=== PATIENT | male | born 1945 | race Caucasian/White ===

== ENCOUNTER 2020-03-29 01:22 | Emergency (ER) | payer OTHER, SELFPAY ==
[2020-03-29 01:25] VITALS: BP 183/96; PULSE 66; RESP 16; TEMP 36.8; O2SAT 97; BMI 24.3
--- NOTE | 2020-03-29 01:45 | ED.GENADULT ---
HPI - General Adult General Chief complaint: Dizziness Stated complaint: has episode of vertigo, nausea,hot sweat Time Seen by Provider: 03/29/20 01:31 Source: patient Mode of arrival: Ambulatory Limitations: no limitations History of Present Illness HPI narrative: 74-year-old male who arrives the emergency department by private vehicle for evaluation of an episode that occurred earlier this evening. He states that he seemed to be at his normal state health when he was sitting eating. He states that he became very lightheaded. He initially did stated that he was having vertigo but upon further questioning it appears that he did not have any room spinning sensation. He states that he did feel like he was going to pass out. His had to help him over the couch where he laid down. After period of time he did seem to feel somewhat better. During this time he denied any other symptoms to include palpitations or shortness of breath or chest pain. During his travels here to the emergency department he states that he felt much better with sitting and laying down and some of the symptoms did occur when he was standing. The time my evaluation he felt like he was ?60% ?back to normal again. Has never had any symptoms like this in the past. Review of Systems Constitutional Constitutional: Denies chills, Denies fatigue and Denies fever(s) Eyes Eyes: Denies change in vision ENT Ears, Nose, Mouth, and Throat: Denies vertigo, Reports dizziness, Denies neck pain, Reports disequilibrium and Denies sore throat Cardiovascular Cardiovascular: Denies chest pain and Denies dyspnea Respiratory Respiratory: Denies dyspnea Gastrointestinal Gastrointestinal: Denies abdominal pain, Denies nausea and Denies vomiting Musculoskeletal Musculoskeletal: Denies neck pain Integumentary/Breasts Skin/Breast: Denies lesions and Denies rash Neurologic Neurologic: Denies abnormal movements, Denies abnormal speech, Denies behavioral changes, Denies vertigo, Reports dizziness, Denies convulsions and Reports disequilibrium Psychiatric Psychiatric: Denies behavioral changes Endocrine Endocrine: Denies fatigue Hematologic/Lymphatic Hematologic/Lymphatic: Denies easy bleeding and Denies easy bruising Patient History Medical History Patient denies medical problems (Acute) Social History Smoking Status: Never smoker Smoking Status: Never smoker Substance Use Type: does not use Exam Initial Vital Signs Initial Vital Signs: Vital Signs Temperature 98.2 F 03/29/20 01:25 Pulse Rate 66 03/29/20 01:25 Respiratory Rate 16 03/29/20 01:25 Blood Pressure 183/96 H 03/29/20 01:25 Pulse Oximetry 97 03/29/20 01:25 Const General: cooperative and comfortable Limitations: mental status not altered HENMT Head: normal to inspection and normocephalic Eyes Pupils: PERRL EOM: EOM intact bilaterally Resp Effort & Inspection: normal respiratory effort Auscultation: clear to auscultation bilaterally Cardio Rate: regular rate Rhythm: regular rhythm Skin Lesions: no lesions Rashes: no rashes Neuro General: patient alert, patient awake and patient oriented x3 Cranial Nerves: CN's II-XI intact bilaterally Cognition: normal cognition Speech: speech normal Gait: normal gait Motor: muscle tone normal throughout Sensory Exam: no sensory deficits noted Extrem General: normal to inspection and capillary refill normal Psych Appearance: grossly normal and well kempt Scores GCS [place] coma scale eye opening: Spontaneous [place] coma scale verbal response: Orientated [place] coma scale motor response: Obey commands [place] coma scale total score: 15 Course Orders Ordered: ED Orders 03/29/20 01:32 EKG-12 Lead Stat 03/29/20 01:35 Basic Metabolic Panel Stat Complete Blood Count AUTO DIFF Stat Troponin I Stat 03/29/20 01:46 CT head/brain wo con Stat Vital Signs Vital signs: Vital Signs - 8 hr 03/29/20 01:25 03/29/20 02:54 03/29/20 03:00 Temperature 98.2 F Pulse Rate 66 61 Pulse Rate [Orthostatic Lying] 64 Pulse Rate [Orthostatic Sitting] 70 Pulse Rate [Orthostatic Standing] 65 Respiratory Rate 16 16 Blood Pressure 183/96 H 132/75 Blood Pressure [Orthostatic Lying] 133/77 Blood Pressure [Orthostatic Sitting] 155/79 H Blood Pressure [Orthostatic Standing] 163/82 H Pulse Oximetry 97 97 03/29/20 04:13 Temperature Pulse Rate 67 Pulse Rate [Orthostatic Lying] Pulse Rate [Orthostatic Sitting] Pulse Rate [Orthostatic Standing] Respiratory Rate 18 Blood Pressure 164/96 H Blood Pressure [Orthostatic Lying] Blood Pressure [Orthostatic Sitting] Blood Pressure [Orthostatic Standing] Pulse Oximetry 99 Medical Decision Making Lab Data Lab results reviewed: Yes I reviewed the patient's lab results. Result diagrams: 03/29/20 01:35 03/29/20 01:35 Labs: Lab Results 03/29/20 03/29/20 Range/Units 01:35 01:35 WBC 10.7 (4.5-11.0) X10^3/uL RBC 4.98 (4.5-5.9) X10^6/uL Hgb 14.8 (13.5-17.5) g/dL Hct 44.7 (41-53) % MCV 89.6 (80-100) fL MCH 29.7 (26-34) PG MCHC 33.1 (30-36) % RDW 13.0 (11.6-14.8) % Plt Count 215 (150-400) X10^3/uL Neut % (Auto) 51.6 (50-75) % Lymph % (Auto) 31.2 (25-40) % [place] % (Auto) 6.2 (3-14) % Eos % (Auto) 10.4 H (2-4) % Baso % (Auto) 0.6 (0-2) % Neut # (Auto) 5500 (8266-0642) /uL Lymph # (Auto) 3400 (4878-2268) /uL [place] # (Auto) 700 (0-900) /uL Eos # (Auto) 1100 H (0-450) /uL Baso # (Auto) 100 (0-100) /uL Sodium 137 (137-145) mmol/L Potassium 4.1 (3.4-5.1) mmol/L Chloride 104 (98-107) mmol/L Carbon Dioxide 27 (22-32) mmol/L BUN 23 H (9-20) mg/dL Creatinine 1.15 (0.66-1.25) mg/dL Estimated GFR > 60.0 (>60) mL/min BUN/Creatinine Ratio 20.0 (6-22) Glucose 96 (80-110) mg/dL Calcium 9.5 (8.4-10.2) mg/dL Troponin I < 0.012 (0.01-0.034) ng/mL Imaging Data CT scan - head: Radiologist's Impression: No acute intracranial hemorrhage or infarct ECG Data Attestation: I personally reviewed and interpreted this ECG as follows: Prior ECG tracings: not available for review Interpretation: Sinus rhythm Normal axis Normal QRS Normal QTC No ST T wave changes MDM Narrative Medical decision making narrative: Patient has essentially normal exam here in the ER to include in neurologic exam. During his time here he did state that all of his symptoms have completely resolved he is back to 100% normal. He ambulated around the emergency depart without any problems. His head CT is unremarkable. His EKG is unremarkable. His labs are unremarkable. I do not have a specific etiology for symptoms however I believe that CVA is unlikely. His description of his exams are not consistent with vertigo. I also feel that symptoms are less likely related to TIA. He is not orthostatic. He has not had any ectopy on the monitors however he did have a discussion with him that potentially his symptoms could be related to an abnormal heart rhythm. I did inform him that he should contact his primary doctor to discuss the indications for a Holter monitor. Patient states he would like to go home. I do not have a specific reason to admit him to the hospital. He was given return precautions and follow-up instructions. He expressed understanding and agreement. Discharge Plan Departure Patient Disposition: Home Clinical Impression: Dizziness Discharge Date/Time: 03/29/20 04:12 Instructions: DI for Dizziness-Nonvertigo Activity Restrictions/Additional Instructions: Continue to take all of your medications as directed. I do recommend you talk with her primary doctor about the indications for a Holter monitor. Return to the emergency department for any new or worsening symptoms
--- NOTE | 2020-03-29 01:46 | DI.CT.S_ITS ---
PROCEDURE: CT HEAD/BRAIN WO CON INDICATIONS: presyncope/vertigo TECHNIQUE: Noncontrast 4.5 mm thick angled axial sections acquired from the foramen magnum to the vertex, with coronal and sagittal reformats. For radiation dose reduction, the following was used: automated exposure control, adjustment of mA and/or kV according to patient size. COMPARISON: None. FINDINGS: Image quality: Excellent. CSF spaces: Basal cisterns are patent. No extra-axial fluid collections. The ventricles are symmetric in size and shape. Brain: No intracranial bleeds or masses. There is mild cerebral volume loss for age, with resultant ventricular and sulcal prominence. There are mild periventricular and deep white matter chronic small vessel ischemic changes. Oliveira-white matter differentiation is normal. Skull and face: Calvarium and visualized facial bones appear intact, without suspicious lesions. Sinuses: Visualized sinuses and mastoids are clear. IMPRESSION: No acute intracranial disease process. Dictated by: Radha Erickson MD, PhD on 03/29/2020 at 7:20 Approved by: Radha Erickson MD, PhD on 03/29/2020 at 7:21
[2020-03-29 01:51] LABS: Add Manual Diff / Slide Review NO; Basophils Absolute Auto 100 /uL (0-100); Basophils Percent Auto 0.6 % (0-2); Eosinophils Absolute Auto 1100 /uL (0-450); Hematocrit 44.7 % (41-53); Hemoglobin 14.8 g/dL (13.5-17.5); Lymphocytes Absolute Auto 3400 /uL (1100-4500); Lymphocytes Percent Auto 31.2 % (25-40); Mean Corpuscular HGB Conc 33.1 % (30-36); Mean Corpuscular Hemoglobin 29.7 PG (26-34); Mean Corpuscular Volume 89.6 fL (80-100); Monocytes Absolute Auto 700 /uL (0-900); Monocytes Percent Auto 6.2 % (3-14); Neutrophils Absolute Auto 5500 /uL (1500-7000); Neutrophils Percent Auto 51.6 % (50-75); Platelet Count 215 X10^3/uL (150-400); Red Blood Cell Count 4.98 X10^6/uL (4.5-5.9); White Blood Cell Count 10.7 X10^3/uL (4.5-11.0)
[2020-03-29 01:55] LABS: Eosinophils Percent Auto 10.4 % (2-4)
[2020-03-29 01:56] LABS: Blood Urea Nitrogen 23 mg/dL (9-20); Calcium 9.5 mg/dL (8.4-10.2); Carbon Dioxide 27 mmol/L (22-32); Chloride 104 mmol/L (98-107); Estimated Glomerular Filt Rate > 60.0 mL/min (>60); Glucose 96 mg/dL (80-110); HEMOLYSIS 16 (0-50); Potassium 4.1 mmol/L (3.4-5.1); Sodium 137 mmol/L (137-145)
[2020-03-29 02:08] LABS: Troponin I < 0.012 ng/mL (0.01-0.034)
[2020-03-29 02:54] VITALS: BP 133/77; BP 155/79; BP 163/82; PULSE 64; PULSE 65; PULSE 70
[2020-03-29 03:00] VITALS: BP 132/75; PULSE 61; RESP 16; O2SAT 97
[2020-03-29 04:13] VITALS: BP 164/96; PULSE 67; RESP 18; O2SAT 99
== END 2020-03-29 04:12 | disposition home or self-care (01) ==
PROVIDERS: Emergency Provider Emergency Medicine
DX: R42 Dizziness and giddiness (principal); R11.0 Nausea; R55 Syncope and collapse
CPT/HCPCS: 36415; 70450; 80048; 84484; 85025; 93005; 99284